=== PATIENT | male | born 2005 | race Two or more races ===

== ENCOUNTER 2025-01-20 21:50 | Emergency (ER) | payer MEDICAID, SELFPAY ==
[2025-01-20 21:51] VITALS: BMI 33.9
[2025-01-20 22:01] VITALS: BP 120/80; PULSE 69; RESP 19; TEMP 36.7; O2SAT 98
--- NOTE | 2025-01-21 00:12 | XR_ITS ---
EXAMINATION: Abdomen 2 views TECHNIQUE: AP supine AP upright abdomen 2 views Date and time: January 21, 2025, 12:27 a.m. INDICATIONS: Bilateral flank pain beginning today FINDINGS: Large amounts of stool throughout the colon No renal or ureteral calculi No free air Osseous structures are intact IMPRESSION: Large amount of stool throughout the colon
--- NOTE | 2025-01-21 00:12 | EDNOTE_ITS ---
ED General RME/HPI General Chief complaint: General Adult/Misc Complain Stated complaint: BILAT FLANK PAIN Time Seen by Provider: 01/20/25 22:34 Arrival date/time: 01/20/25 21:50 19-year-old male reports with complaints of abdominal pain for 2 days. Patient reports the pain in the abdomen occurs with movement. He reports no injuries no recent workout no nausea vomiting diarrhea blood or mucus in stools dysuria urinary urgency frequency or hematuria. Patient states that he has not taken any medications for the pain. Patient does report constipation for 2 days Limitations: no limitations Related Data Allergies Allergy/AdvReac Type Severity Reaction Status Date / Time No Known Allergies Allergy Verified 01/20/25 21:57 Review of Systems Constitutional Constitutional: Denies chills and Denies fever(s) Cardiovascular Cardiovascular: Denies chest pain and Denies dyspnea Respiratory Respiratory: Denies cough and Denies dyspnea Gastrointestinal Gastrointestinal: Reports constipation, Denies loose stools, Denies melena, Denies nausea and Denies vomiting Genitourinary Genitourinary: Denies dysuria and Denies hematuria Musculoskeletal Musculoskeletal: Denies back pain and Denies deformity Integumentary/Breasts Skin/Breast: Denies rash and Denies skin pain Past Medical History Social History SMOKING STATUS: Never smoker ED Exam General Limitations: Present no limitations General appearance: Present alert and in no apparent distress Head Head exam: Present atraumatic Chest Chest inspection: Present normal inspection and symmetric chest wall rise Respiratory Respiratory exam: Present normal lung sounds bilaterally Cardiovascular Cardiovascular exam: Present regular rate, normal rhythm and normal heart sounds Abdominal Exam Abdominal exam: Present soft and normal bowel sounds; Absent distention, tenderness, guarding, rebound, ascites, mass or bruit Extremities Exam Extremities exam: Present normal inspection and full ROM Back Exam Back exam: Present normal inspection and full ROM Neurological Exam Neurological exam: Present alert, oriented X3 and CN II-XII intact Psychiatric Psychiatric exam: Present normal affect and normal mood Skin Skin exam: Present warm, dry, intact and normal color Course Course Course Narrative: 19-year-old male reports with 2-day history of abdominal pain urine analysis is unremarkable however abdominal x-ray shows large quantities of stool in the colon no air-fluid levels are noted. Differential diagnosis includes constipation versus muscle skeletal pain versus gastroenteritis. Patient is stable nontoxic-appearing with stable vital signs will be discharged home advised on stool softeners or laxatives and increasing fiber and water intake hydrating well and following up with primary care provider if no improvement in 3 days. Quality Measures none Orders Category Date Time Status XR abdomen flat and uprght Stat Exams 01/21/25 00:12 Taken UA, C/S IF [Urinalysis, C/S if Indicated] Stat Lab 01/21/25 01:40 Completed Vital Signs Vital signs: Vital Signs Temperature 98.1 F 01/20/25 22:01 Pulse Rate 69 01/20/25 22:01 Respiratory Rate 19 01/20/25 22:01 Blood Pressure 120/80 01/20/25 22:01 Pulse Oximetry (%) 98 01/20/25 22:01 Oxygen Delivery Method Room Air 01/20/25 22:01 Discharge Plan Plan Patient Disposition: HOME (Self Care) Prescriptions/Referrals Referrals: No Primary/Family,Physician [Primary Care Provider] - In 1 week Problem List Clinical Impression: Constipation Patient/Caregiver Discharge Instructions Discharge Activity: activity as tolerated Education Materials: ED Constipation (Adult) Additional Instructions: Urine test is normal your x-rays shows that you are constipated you should con cloth sander taking a laxative or a stool softener and also increasing water intake as well as fiber with fruits and vegetables and follow-up with your primary care provider if no improvement in 3 days Print Language: Czech Stand Alone Forms: Jillian Award Info., Patient Portal Info Letter
[2025-01-21 01:48] LABS: Collection Type, Urine Clean Catch; Squamous Epithelial Cell,Urine 0 /hpf (0-5)
[2025-01-21 01:53] LABS: Bilirubin,Urine Negative (Negative); Blood,Urine Negative (Negative); Clarity,Urine Clear (Clear/Hazy); Color,Urine Lt-Yellow (Lt Yel-Yel); Culture Indicated,Urine Not Indicated; Glucose, Urine Negative (Negative); Ketones,Urine Negative (Negative); Leukocyte Esterase,Urine Negative (Negative); Nitrite,Urine Negative (Negative); PH,Urine 6.5 (5.0-7.0); Protein,Urine Negative (Neg - Trace); RBC,Urine 1 /hpf (0-3); Specific Gravity,Urine 1.019 (1.001-1.035); Urobilinogen,Urine Negative mg/dL (0.0-1.0); WBC,Urine < 1 /hpf (0-5)
[2025-01-21] MEDS: MAGNESIUM CITRATE 300 ML BTL PO (02:19)
== END 2025-01-21 02:25 | disposition home or self-care (01) ==
PROVIDERS: Emergency Provider Physician Assistant
DX: K59.00 Constipation, unspecified (principal)
CPT/HCPCS: 74019; 81001; 99283; A9270

== ENCOUNTER 2025-01-24 22:47 | Emergency (ER) | payer MEDICAID, SELFPAY ==
[2025-01-24 22:57] VITALS: BP 133/86; PULSE 62; RESP 20; TEMP 36.6; O2SAT 98
[2025-01-24] MEDS: KETOROLAC INJ 60 MG/2 ML VIAL IM (23:24)
[2025-01-24] MEDS: HYDROcodone/APAP 5/325 TABLET 1 TAB PO (23:25)
--- NOTE | 2025-01-24 23:36 | PD.EDDENTL ---
ED Dental RME/HPI General Chief complaint: Dental/Oral/Throat Stated complaint: TOOTHACHE Time Seen by Provider: 01/24/25 23:04 Arrival date/time: 01/24/25 22:47 19M with no significant PMH presents to ED with L lower dental pain. Patient saw dentist today and was given clindamycin. Limitations: no limitations Related Data Allergies Allergy/AdvReac Type Severity Reaction Status Date / Time No Known Allergies Allergy Verified 01/24/25 22:48 Review of Systems Review of Systems Systems Reviewed: All systems reviewed, normal except as documented ENT Ears, Nose, Mouth, and Throat: Reports as per HPI and Reports dental pain Past Medical History Social History SMOKING STATUS: Never smoker ED Exam General Limitations: Present no limitations General appearance: Present alert and in distress Head Head exam: Present atraumatic ENT ENT exam: Present mucous membranes moist Expanded ENT Exam Teeth exam: Present dental caries Neck Neck exam: Present normal inspection, full ROM and trachea midline Chest Chest inspection: Present normal inspection and symmetric chest wall rise Neurological Exam Neurological exam: Present alert and oriented X3 Psychiatric Psychiatric exam: Present normal affect and normal mood Skin Skin exam: Present warm, dry, intact and normal color Course Quality Measures none Orders Category Date Time Status HYDROcodone*/APAP 5/325 [[place] 5/325] Med 01/24/25 23:12 Discontinued 1 tab PO X1 ONE Ketorolac Inj [Toradol Inj] Med 01/24/25 23:12 Discontinued 60 mg IM X1 ONE Vital Signs Vital signs: Vital Signs Temperature 97.9 F 01/24/25 22:57 Pulse Rate 62 01/24/25 22:57 Respiratory Rate 20 01/24/25 22:57 Blood Pressure 133/86 H 01/24/25 22:57 Pulse Oximetry (%) 98 01/24/25 22:57 Oxygen Delivery Method Room Air 01/24/25 22:57 O2 at 98% on RA and WNLs Dental / Oral MDM Narrative MDM Narrative:: 19M with no significant PMH presents to ED with L lower dental pain. Patient saw dentist today and was given clindamycin. Physical exam reveals multiple dental caries. No facial swelling. Patient is afebrile, alert, but appears to be in pain. Meds and prevocational/rehabilitation counselor given. Patient data External records reviewed:: [facility] previous records Clinical information provided by:: patient Social determinants that could affect healthcare access:: none Patient has the following chronic illnesses:: none How is presenting disease/condition affected by chronic disease/condition?: no chronic disease Evaluation data The following diagnostics were reviewed and interpreted by me:: other (specify) (none) Lab and/or radiology exams considered but not ordered:: not ordered Interpretation Summary: n/a Medications / Prescriptions Medications or Prescriptions considered but not ordered:: ordered Medication administrations:: Medication Administration History Discontinued Medications Hydrocodone Bitart/Acetaminophen (Hydrocodone/[place] 5/325 Tablet) 1 tab PO X1 ONE Stop: 01/24/25 23:13 Last Admin: 01/24/25 23:25 Dose: 1 tab Documented By: JAKE Ketorolac Tromethamine (Ketorolac Inj 60 Mg/2 Ml Vial) 60 mg IM X1 ONE Stop: 01/24/25 23:13 Last Admin: 01/24/25 23:24 Dose: 60 mg Documented By: JAKE above Consultations Consultation(s) initiated? (list below): No Diagnosis Dental Differential Diagnosis: gingival abscess, dental caries, toothache, dental abscess, fracture of tooth and aphthous ulcer Most likely diagnosis given after review of the tests above:: toothache Admission Indicated Admission indicated?: not indicated Admission Request Was there a request for admission?: No Disposition Plan Disposition Plan: Discharge Discharge Attestation Discharge Attestation: The patient and all family members were given an opportunity to ask questions and understood the discharge instructions. Discharge instructions specifically effects, indications for sooner follow up or return to the emergency department, and the expected course of current diagnosis. Patient condition: Stable Discharge Plan Plan Patient Disposition: HOME (Self Care) Discharge Disposition comment: Stable Problem List Clinical Impression: Toothache Patient/Caregiver Discharge Instructions Education Materials: ED Dental Pain Additional Instructions: Please follow-up with PCP within 24-48 hours and return immediately if symptoms worsen. Take prescribed ABX. Print Language: Kenyan Stand Alone Forms: Patient Portal Info Letter SAIRA/KENY Supervising Physician SAIRA/KENY Supervising Physician: Dr. De La O
== END 2025-01-24 23:44 | disposition home or self-care (01) ==
LOC: SERX 23:33
PROVIDERS: Emergency Provider Emergency Medicine
DX: K08.89 Other specified disorders of teeth and supporting structures (principal)
CPT/HCPCS: 96372; 99282; J1885; A9270